=== PATIENT | male | born 1970 | race Caucasian/White ===

== ENCOUNTER 2025-09-21 08:41 | Day surgery (SDC) | payer OTHER, BC ==
[2025-09-21] VITALS (14 sets, daily range): BP systolic 126–139; BP diastolic 77–98
[~2025-09-21] VITALS: Ht 177.8 cm; Wt 97.0 kg
[~2025-09-21 08:41] MED LIST: ACEBUTCAFT PO; ATOR20 PO; Allegra-D 12 H1 EACH PO; DEPO-TESTO200 MG/1 M IM; DIAZ5 PO; FLUO20; HYDACE5; HYDACE5 PO; HYDMOR2; LISI5 PO; LIVALO1 MG PO; MULTI-VITAMIN1 EAC2 PO; Norco 10-325 T1 EACH PO; ONDA4 PO; ONDA4ODT PO; OXYACE5T PO; PROM25 PO; Prozac20 MG PO; RANI150 PO; RXHYD5325 PO; SULTRISS PO; SUMA25 PO; TRAM50 PO; Tylenol325 MG PO; [UNRECOGNIZED DRUG - OTHER] PO
[2025-09-21] MEDS ORDERED: Bupivacaine 0.5% W/EPI 1:200000 SDV 30 ML Vial ONE (08:46)
[2025-09-21] MEDS ORDERED: CeFAZolin Sodium 2,000 MG in NS 100 ML IV SCH (09:05)
--- NOTE | 2025-09-21 09:52 | NUR ---
History, Chart, Medications and Allergies reviewed before start of procedure.Patient confirms NPO status and agrees with scheduled surgery. Pre-Op teaching done. Pt verbalizes understanding. Patient States Post-Procedure ride home has been arranged.VOIDED PRIOR TO SYRGERY
[2025-09-21] MEDS ORDERED: FentaNYL Citrate 50 MCG/ML 2 ML Injection ONE ×2 (10:18→14:05)
[2025-09-21] MEDS ORDERED: Midazolam HCl 1MG / ML 2ML Vial ONE (10:18)
[2025-09-21] MEDS ORDERED: Rocuronium Bromide 10 MG/ML 5ML Injection IV ONE ×3 (11:00→13:18)
[2025-09-21] MEDS ORDERED: Dexamethasone Sod Phos 10 MG/ML 1ML VIAL ONE (11:28)
[2025-09-21] MEDS ORDERED: Ketorolac Tromethamine 30mg Vial ONE (11:28)
[2025-09-21] MEDS ORDERED: Ondansetron HCl 2 MG / ML 2ML Vial ONE (11:28)
[2025-09-21] MEDS ORDERED: Sugammadex Sodium 200 MG/2ML SDV (100 MG/ML) ONE (11:28)
[2025-09-21] MEDS ORDERED: Phenylephrine HCl 100 MCG/ML-NS 10MLSYR (1MG/10ML) ONE (11:38)
[2025-09-21] MEDS ORDERED: HYDROmorphone HCl/Pf 1MG SYR IV PRN ×2 (11:50)
[2025-09-21] MEDS ORDERED: FentaNYL Citrate 50 MCG/ML 2 ML Injection IV PRN ×2 (11:50)
[2025-09-21] MEDS ORDERED: Ondansetron HCl 2 MG / ML 2ML Vial IV PRN (11:50)
[2025-09-21] MEDS ORDERED: ePHEDrine Sulfate 50 MG/ML 1ML Injection ONE (11:52)
[2025-09-21] MEDS ORDERED: HYDROmorphone HCl/Pf 1MG SYR ONE (12:52)
[2025-09-21] MEDS ORDERED: OxyCODONE 5 mg/Acetamin 325 mg TABLET PO PRN (14:05)
--- NOTE | 2025-09-21 15:21 | NUR ---
Discharge instructions reviewed with patient. Patient verbalizes understanding. Copy given to patient to take home.
--- NOTE | 2025-09-21 15:32 | NUR ---
PATIENT ADVISED TO DEEP BREATH AND COUGH SEVERAL TIMES AN HOUR. LUNG SOUNDS CLEAR. REPORT GIVEN TO SYDNI STOREY RN.
--- NOTE | 2025-09-21 15:41 | NUR ---
REVIEWED IS-SATS UP TO 97% PT VERBALIZES AND DEMONSTRATES UNDERSTANDING.DISCHARGED TO HOME, OUT VIA WHEELCHAIR WITH BELONGINGS AND DISCHARGE INSTRUCTIONS ON HAND.
[2025-09-21] MEDS ORDERED: FLU VACC TS2025-26(6MOS UP)/PF 45 MCG/0.5 ML SYRINGE IM SCH (16:15)
== END 2025-09-21 15:41 | disposition home or self-care (01) ==
LOC: ORSCMMR 08:41 → ORD 10:00 → ORSCMMR 10:30
PROVIDERS: Surgery
PROC: 0WUF4JZ Supplement Abdominal Wall with Synthetic Substitute, Percutaneous Endoscopic Approach (ICD-10-PCS; principal; 2025-09-21 10:30)
PROC: 3E023BZ Introduction of Anesthetic Agent into Muscle, Percutaneous Approach (ICD-10-PCS; principal; 2025-09-21 10:30)
PROC: 8E0W4CZ Robotic Assisted Procedure of Trunk Region, Percutaneous Endoscopic Approach (ICD-10-PCS; principal; 2025-09-21 10:30)
DX: K43.0 Incisional hernia with obstruction, without gangrene (principal); I10 Essential (primary) hypertension; E78.2 Mixed hyperlipidemia; K21.9 Gastro-esophageal reflux disease without esophagitis; F32.A Depression, unspecified; G47.33 Obstructive sleep apnea (adult) (pediatric); G93.32 Myalgic encephalomyelitis/chronic fatigue syndrome; E66.811 Obesity, class 1; Z68.30 Body mass index [BMI] 30.0-30.9, adult; Z79.899 Other long term (current) drug therapy
CPT/HCPCS: A9270; C1781; J0690; J1100; J1171; J1885; J2250; J2371; J2405; J2704; J3010; J7120